=== PATIENT | female | born 1995 | race Hispanic/Latino ===

== ENCOUNTER 2016-06-04 12:49 | Emergency (ER) | payer MEDICAID ==
[2016-06-04] MEDS ORDERED: SODIUM CHLORIDE 0.9% 1,000 ML ONE (14:31)
[2016-06-04] MEDS ORDERED: ONDANSETRON 4 MG VIAL ONE (14:31)
== END 2016-06-04 15:24 | disposition home or self-care (01) ==
LOC: ER 12:49 → EEVIPCON 12:49 → ER 15:24
CPT/HCPCS: 71020; 87077; 87186; 96361; 96374